=== PATIENT | female | born 1940 | race Caucasian/White ===

== ENCOUNTER 2020-10-13 16:01 | Emergency (ER) | payer MEDICARE, OTHER ==
[~2020-10-13 16:01] MED LIST: BISAC-EVAC10 MG PR; COUMADIN 2.5MG2.5 MG PO; COUMADIN3 MG PO; COUMADIN4 MG PO; CYMBALTA 30 MG30 MG PO; DEMADEX 20 MG T20 MG PO; DIABETA 2.5 MG2.5 MG PO; DOUBLE ANTIBI28.4 GM TOP; DURAGESIC 50 MCG1 EA TP; ERTAPENEM1 GM IM; ERTAPENEM1 GM IV; ERYTHROMYCIN O3.5 GM OS; FLONASE 0.05% N16 GM; GLUCAGEN1 MG INJ; GLUCOSE GEL38 GM PO; GLUCOTROL5 MG PO; HUMALOG 10100 UNITS/ SC; HYDROCODON-ACE1 EAC4 PO; IMDUR ER TAB 3030 MG PO; INVANZ 1 GM VIAL1 GM IM; IPRAT-ALBUT 0.5-3 ML INH; KEFLEX500 MG PO; LANTUS INS100 UTS/M1 SC; LANTUS100 UNIT/1 SQ; LASIX40 MG PO; LOPRESSOR 25 MG25 MG PO; LOTRIMIN CREAM15 GM TP; MILK OF MAGNESI30 ML PO; MYCOSTATIN CREA15 GM TOP; NEURONTIN 300300 MG PO; NEURONTIN300 MG PO; NORCO 5-325 TA1 EACH PO; NOVOLOG100 UNIT/1 SC; NOVOLOG100 UNIT/1 SQ; OMNICEF 300 MG300 MG PO; OXYGEN; PROAMATINE 2.52.5 MG PO; PROTONIX40 MG PO; RISPERDAL0.25 MG PO; ROBAFEN-DM SYR118 ML PO; SALINE NOSE SPR45 ML; SENNA LAX8.6 MG PO; STOOL SOFTENER250 MG PO; SWEEN 2457 GM TP; THERAGRAN TAB1 EA PO; TOPROL XL25 MG PO; TYLENOL 500 MG500 MG PO; TYLENOL325 MG PO; UNNA-FLEX CONV1 EACH TP; VITAMIN D31000 UNI1 PO; XANAX 0.25 MG0.25 MG PO; XANAX0.25 MG PO; ZAROXOLYN/DIULO5 MG PO
[2020-10-13 17:53] LABS: HEMOGLOBIN 11.9 gm/dl (12.3-15.3); RED BLOOD COUNT 4.19 M/UL (4.00-5.10); WHITE BLOOD COUNT 7.9 K/UL (4.5-11.0)
[2020-10-13 18:06] LABS: BUN/CREATININE RATIO 13 (0-10)
[2020-10-13] MEDS ORDERED: OMNICEF 300 MG300 MG PO (21:28)
== END 2020-10-13 21:57 | disposition short-term general hospital (02) ==
LOC: ER1 16:01
PROVIDERS: Emergency Medicine
DX: N39.0 Urinary tract infection, site not specified (principal); R41.82 Altered mental status, unspecified; R91.8 Other nonspecific abnormal finding of lung field; H10.9 Unspecified conjunctivitis; I10 Essential (primary) hypertension; E11.9 Type 2 diabetes mellitus without complications; J44.9 Chronic obstructive pulmonary disease, unspecified; Z20.822 Contact with and (suspected) exposure to COVID-19
CPT/HCPCS: 36600; 51702; 70450; 71045; 71250; 80053; 81001; 82550; 82553; 82803; 82962; 83605; 83690; 83735; 83874; 83880; 84484; 85025; 87040; 87077; 87086; 87186; 93005; 96365; 99285; J0696; U0002

== ENCOUNTER 2021-03-22 23:44 | Inpatient (IN) | payer MEDICARE, OTHER ==
[~2021-03-22] VITALS: Ht 165.1 cm; Wt 116.8 kg
[2021-03-23 01:12] LABS: HEMOGLOBIN 11.5 gm/dl (12.3-15.3); RED BLOOD COUNT 4.23 M/UL (4.00-5.10); WHITE BLOOD COUNT 16.3 K/UL (4.5-11.0)
[2021-03-23 01:34] LABS: BUN/CREATININE RATIO 16 (0-10)
[2021-03-23] MEDS ORDERED: BACTROBAN OINT22 GM EXT (12:51)
[2021-03-23] MEDS ORDERED: DULOXETINE HCL30 MG PO (12:54)
[2021-03-23] MEDS ORDERED: CLARITIN 10MG T10 MG PO (12:54)
[2021-03-23] MEDS ORDERED: ELIQUIS5 MG PO (12:55)
[2021-03-23] MEDS ORDERED: FENTANYL1 EAC1 TD (12:56)
[2021-03-23] MEDS ORDERED: GABAPENTIN300 MG PO (12:57)
[2021-03-23] MEDS ORDERED: GLUCAGEN1 MG INJ (12:58)
[2021-03-23] MEDS ORDERED: LANTUS100 UNIT/1 SC (13:00)
[2021-03-23] MEDS ORDERED: ARTIFICIAL TEA1 EACH OP (13:02)
[2021-03-23] MEDS ORDERED: INSULIN AS100 UNIT/2 SC (13:03)
[2021-03-23] MEDS ORDERED: [UNRECOGNIZED DRUG - OTHER] TP (13:04)
[2021-03-23 16:15] LABS: BORDETELLA PARAPERTUSSIS Not Detected (Not Detectd); BORDETELLA PERTUSSIS Not Detected (Not Detectd); CHLAMYDIA PNEUMONIAE Not Detected (Not Detectd); CORONAVIRUS HKU1 Not Detected (Not Detectd); CORONAVIRUS NL63 Not Detected (Not Detectd); CORONAVIRUS OC43 Not Detected (Not Detectd); CORONOAVIRUS 229E Not Detected (Not Detectd); HUMAN METAPNEUMOVIRUS Not Detected (Not Detectd); HUMAN RHINOVIRUS/ENTEROVIRUS Not Detected (Not Detectd); INFLUENZA A Not Detected (Not Detectd); INFLUENZA B Not Detected (Not Detectd); MYCOPLASMA PNEUMONIAE Not Detected (Not Detectd); PARAINFLUENZA VIRUS 1 Not Detected (Not Detectd); PARAINFLUENZA VIRUS 2 Not Detected (Not Detectd); PARAINFLUENZA VIRUS 3 Not Detected (Not Detectd); PARAINFLUENZA VIRUS 4 Not Detected (Not Detectd); RESPIRATORY SYNCYTIAL VIRUS Not Detected (Not Detectd)
[2021-03-23 19:09] LABS: SARS-CoV-2 NOT DETECTED (Not Detectd)
[2021-03-24 02:44] LABS: HEMOGLOBIN 10.3 gm/dl (12.3-15.3)
[2021-03-24 02:48] LABS: RED BLOOD COUNT 3.61 M/UL (4.00-5.10); WHITE BLOOD COUNT 9.2 K/UL (4.5-11.0)
[2021-03-24 03:00] LABS: BUN/CREATININE RATIO 19 (0-10)
[2021-03-25 04:19] LABS: HEMOGLOBIN 10.8 gm/dl (12.3-15.3); RED BLOOD COUNT 3.77 M/UL (4.00-5.10); WHITE BLOOD COUNT 8.3 K/UL (4.5-11.0)
[2021-03-25 04:38] LABS: BUN/CREATININE RATIO 18 (0-10)
[2021-03-25] MEDS ORDERED: HYDROCODON-ACE1 EAC4 PO (09:29)
[2021-03-25] MEDS ORDERED: FENTANYL1 EAC1 TD ×2 (09:29→09:41)
[2021-03-25] MEDS ORDERED: GABAPENTIN300 MG PO (09:29)
[2021-03-25] MEDS ORDERED: ALPRAZOLAM0.5 MG PO (09:29)
[2021-03-25] MEDS ORDERED: AUGMENTIN 875-1 EACH PO ×2 (09:29→09:41)
[2021-03-25] MEDS ORDERED: IPRAT-ALBUT 0.5-3 ML NEB (09:50)
[2021-03-25 16:12] LABS: ORGANISM ID Not indicated. (.); SPECIMEN SOURCE Urine (.); STREPTOCOCCUS PNEUMONIAE AG Negative (Negative)
== END 2021-03-25 15:11 | disposition hospice, inpatient (51) | DRG 871 ==
LOC: ER1 23:44 → CDU 03-23 02:18 → PROG CARE 03-23 12:31 → M/S 03-24 21:53
PROVIDERS: Emergency Medicine; Internal Medicine; Internal Medicine Pulmonary Disease; ADMIT Internal Medicine
PROC: 5A09357 Assistance with Respiratory Ventilation, Less than 24 Consecutive Hours, Continuous Positive Airway Pressure (ICD-10-PCS; principal; 2021-03-23)
PROC: 5A0945A Assistance with Respiratory Ventilation, 24-96 Consecutive Hours, High Flow/Velocity Cannula (ICD-10-PCS; 2021-03-23)
DX: A41.9 Sepsis, unspecified organism (principal); J69.0 Pneumonitis due to inhalation of food and vomit; I50.33 Acute on chronic diastolic (congestive) heart failure; R53.2 Functional quadriplegia; J96.21 Acute and chronic respiratory failure with hypoxia; J18.9 Pneumonia, unspecified organism; E87.2 Acidosis; F11.20 Opioid dependence, uncomplicated; I69.351 Hemiplegia and hemiparesis following cerebral infarction affecting right dominant side; Z68.41 Body mass index [BMI] 40.0-44.9, adult; I24.8 Other forms of acute ischemic heart disease; Z20.822 Contact with and (suspected) exposure to COVID-19; Z66 Do not resuscitate; Z51.5 Encounter for palliative care; F03.90 Unspecified dementia, unspecified severity, without behavioral disturbance, psychotic disturbance, mood disturbance, and anxiety; F41.9 Anxiety disorder, unspecified; E66.01 Morbid (severe) obesity due to excess calories; E78.5 Hyperlipidemia, unspecified; F32.9 Major depressive disorder, single episode, unspecified; I48.0 Paroxysmal atrial fibrillation; E11.65 Type 2 diabetes mellitus with hyperglycemia; I11.0 Hypertensive heart disease with heart failure; K59.00 Constipation, unspecified; R65.20 Severe sepsis without septic shock; J45.909 Unspecified asthma, uncomplicated; E11.40 Type 2 diabetes mellitus with diabetic neuropathy, unspecified; Z79.4 Long term (current) use of insulin; I69.321 Dysphasia following cerebral infarction; Z86.711 Personal history of pulmonary embolism; Z79.01 Long term (current) use of anticoagulants; Z86.16 Personal history of COVID-19; Z79.82 Long term (current) use of aspirin; Z86.718 Personal history of other venous thrombosis and embolism; Z74.01 Bed confinement status; Z99.81 Dependence on supplemental oxygen; Z88.8 Allergy status to other drugs, medicaments and biological substances; Z91.041 Radiographic dye allergy status
CPT/HCPCS: 36415; 36600; 71045; 80053; 80202; 81001; 82550; 82553; 82803; 82962; 83605; 83735; 83874; 83880; 84100; 84484; 85025; 85610; 85730; 86140; 87040; 87081; 87278; 87633; 87899; 92526; 92610; 93005; 94640; 94660; 94664; 94760; 96374; 99285; C9113; J0295; J2543; J3370; J7030; J7070; U0002

== ENCOUNTER 2021-10-06 13:50 | Inpatient (IN) | payer MEDICARE, OTHER ==
[~2021-10-06] VITALS: Ht 167.6 cm; Wt 109.3 kg
[~2021-10-06 13:50] MED LIST changes: +ALPRAZOLAM0.5 MG PO; +ARTIFICIAL TEA1 EACH OP; +AUGMENTIN 875-1 EACH PO; +BACTROBAN OINT22 GM EXT; +CLARITIN 10MG T10 MG PO; +DULOXETINE HCL30 MG PO; +ELIQUIS5 MG PO; +FENTANYL1 EAC1 TD; +GABAPENTIN300 MG PO; +INSULIN AS100 UNIT/2 SC; +IPRAT-ALBUT 0.5-3 ML NEB; +LANTUS100 UNIT/1 SC; +[UNRECOGNIZED DRUG - OTHER] TP
[2021-10-06 14:42] LABS: HEMOGLOBIN 15.9 gm/dl (12.3-15.3); RED BLOOD COUNT 5.54 M/UL (4.00-5.10); WHITE BLOOD COUNT 26.8 K/UL (4.5-11.0)
[2021-10-06 15:08] LABS: BUN/CREATININE RATIO 35 (0-10)
[2021-10-06] MEDS ORDERED: LORATADINE10 MG PO (19:06)
[2021-10-06] MEDS ORDERED: DOCUSATE SODIU250 MG PO (19:15)
[2021-10-06] MEDS ORDERED: ELIQUIS5 MG PO (19:23)
[2021-10-06] MEDS ORDERED: GABAPENTIN400 MG PO (19:31)
[2021-10-07 02:11] LABS: HEMOGLOBIN 14.6 gm/dl (12.3-15.3); RED BLOOD COUNT 5.16 M/UL (4.00-5.10); WHITE BLOOD COUNT 18.5 K/UL (4.5-11.0)
[2021-10-07 03:18] LABS: BUN/CREATININE RATIO 28 (0-10)
[2021-10-08 03:53] LABS: HEMOGLOBIN 13.1 gm/dl (12.3-15.3); RED BLOOD COUNT 4.69 M/UL (4.00-5.10); WHITE BLOOD COUNT 16.7 K/UL (4.5-11.0)
[2021-10-08 04:26] LABS: BUN/CREATININE RATIO 49 (0-10)
[2021-10-09 02:40] LABS: RED BLOOD COUNT 4.55 M/UL (4.00-5.10); WHITE BLOOD COUNT 16.8 K/UL (4.5-11.0)
[2021-10-09 04:38] LABS: BUN/CREATININE RATIO 56 (0-10)
[2021-10-10 03:37] LABS: HEMOGLOBIN 13.1 gm/dl (12.3-15.3); RED BLOOD COUNT 4.61 M/UL (4.00-5.10); WHITE BLOOD COUNT 12.6 K/UL (4.5-11.0)
[2021-10-10 03:59] LABS: BUN/CREATININE RATIO 55 (0-10)
[2021-10-10 18:11] LABS: ORGANISM ID Not indicated. (.); SPECIMEN SOURCE Urine (.); STREPTOCOCCUS PNEUMONIAE AG Negative (Negative)
[2021-10-11 03:21] LABS: RED BLOOD COUNT 4.92 M/UL (4.00-5.10)
[2021-10-11 03:28] LABS: WHITE BLOOD COUNT 20.7 K/UL (4.5-11.0)
[2021-10-11 03:43] LABS: BUN/CREATININE RATIO 56 (0-10)
[2021-10-12 03:10] LABS: HEMOGLOBIN 14.8 gm/dl (12.3-15.3); RED BLOOD COUNT 5.14 M/UL (4.00-5.10); WHITE BLOOD COUNT 23.8 K/UL (4.5-11.0)
[2021-10-12 03:59] LABS: BUN/CREATININE RATIO 65 (0-10)
--- NOTE | 2021-10-12 17:44 | NUR ---
family agreed to make pt comfort measures at 11 am
[2021-10-14] MEDS ORDERED: FENTANYL1 EAC1 TD (10:02)
== END 2021-10-14 17:30 | disposition expired | DRG 871 ==
LOC: ER1 13:50 → CDU 16:25 → PROG CARE 16:25
PROVIDERS: Emergency Medicine; Internal Medicine; ADMIT Internal Medicine
PROC: 3E033XZ Introduction of Vasopressor into Peripheral Vein, Percutaneous Approach (ICD-10-PCS; principal; 2021-10-06)
PROC: 5A0955A Assistance with Respiratory Ventilation, Greater than 96 Consecutive Hours, High Flow/Velocity Cannula (ICD-10-PCS; 2021-10-06)
PROC: 0DH67UZ Insertion of Feeding Device into Stomach, Via Natural or Artificial Opening (ICD-10-PCS; 2021-10-07)
PROC: 3E0G76Z Introduction of Nutritional Substance into Upper GI, Via Natural or Artificial Opening (ICD-10-PCS; 2021-10-07)
PROC: B24BZZ4 Ultrasonography of Heart with Aorta, Transesophageal (ICD-10-PCS; 2021-10-07)
DX: A41.9 Sepsis, unspecified organism (principal); J18.9 Pneumonia, unspecified organism; G93.41 Metabolic encephalopathy; J96.01 Acute respiratory failure with hypoxia; N17.9 Acute kidney failure, unspecified; Z20.822 Contact with and (suspected) exposure to COVID-19; E87.0 Hyperosmolality and hypernatremia; N39.0 Urinary tract infection, site not specified; J44.0 Chronic obstructive pulmonary disease with (acute) lower respiratory infection; J44.1 Chronic obstructive pulmonary disease with (acute) exacerbation; I50.32 Chronic diastolic (congestive) heart failure; Z66 Do not resuscitate; Z51.5 Encounter for palliative care; R94.5 Abnormal results of liver function studies; E11.9 Type 2 diabetes mellitus without complications; I48.0 Paroxysmal atrial fibrillation; K21.9 Gastro-esophageal reflux disease without esophagitis; I11.0 Hypertensive heart disease with heart failure; E66.01 Morbid (severe) obesity due to excess calories; E87.6 Hypokalemia; F41.9 Anxiety disorder, unspecified; I08.3 Combined rheumatic disorders of mitral, aortic and tricuspid valves; R13.10 Dysphagia, unspecified; F03.90 Unspecified dementia, unspecified severity, without behavioral disturbance, psychotic disturbance, mood disturbance, and anxiety; Z99.81 Dependence on supplemental oxygen; Z87.891 Personal history of nicotine dependence; Z79.01 Long term (current) use of anticoagulants; Z79.4 Long term (current) use of insulin; Z88.8 Allergy status to other drugs, medicaments and biological substances; I69.365 Other paralytic syndrome following cerebral infarction, bilateral; Z74.01 Bed confinement status; Z87.01 Personal history of pneumonia (recurrent); Z88.1 Allergy status to other antibiotic agents; Z88.5 Allergy status to narcotic agent; I69.391 Dysphagia following cerebral infarction; Z68.38 Body mass index [BMI] 38.0-38.9, adult
CPT/HCPCS: ECHO; 0240U; 36415; 36600; 51702; 70450; 71045; 71250; 74018; 80048; 80053; 80202; 81001; 82550; 82553; 82803; 82962; 83036; 83540; 83550; 83605; 83735; 83874; 83880; 84132; 84484; 85025; 85027; 85610; 85652; 85730; 86140; 87040; 87086; 87278; 87899; 92526; 92610; 93005; 93306; 93970; 94640; 94664; 94760; 96374; 96375; 96376; 97161; 99285; J0692; J1650; J1940; J2185; J2250; J2270; J2550; J2920; J3370; J3480; J7070; Q0177; U0002